=== PATIENT | female | born 1975 | race Caucasian/White ===

== ENCOUNTER 2022-04-30 22:33 | Emergency (ER) | payer SELFPAY ==
--- NOTE | ~2022-04-30 | XR_ITS ---
EXAMINATION: XR knee LT min 4V DATE: 04/30/2022 23:45 INDICATION: Left knee pain post injury TECHNIQUE: Anteroposterior, 2 oblique and crosstable lateral views of the left knee were obtained COMPARISON: None. FINDINGS: Alignment is normal. No fracture. Joint spaces appear relatively preserved on nonweightbearing imagi ng. Small marginal osteophytes along the proximal distal patella consistent with at least mild osteoa rthritis. Small enthesophyte at the patellar insertion of the quadriceps tendon. Small left knee join t effusion without layering lipohemarthrosis. Cluster of multiple small calcifications at the medial side of the popliteal fossa with location suggesting loose bodies within a Rodriguez's cyst. IMPRESSION: 1. Mild patellofemoral osteoarthritis and small left knee joint effusion. No acute osseous abnormalit y. Reviewed, dictated and finalized at location A. IMPRESSION: 1. Mild patellofemoral osteoarthritis and small left knee joint effusion. No ac page osseous abnormality.
--- NOTE | ~2022-04-30 | XR_ITS ---
EXAMINATION: XR elbow LT 2V DATE: 04/30/2022 23:45 INDICATION: Left elbow injury with pain TECHNIQUE: Anteroposterior, oblique and lateral views of the left elbow were obtained. COMPARISON: None. FINDINGS: There is posterior dislocation of the left elbow with approximately 1.5 cm proximal migration. There are couple tiny ossific densities projecting over the distal humeral condyles likely representing an impaction fracture resident from the tip of the coronoid process. Old fracture of the distal humeral diaphysis which has healed with approximately 10 degrees medial angulation. No other acute fractures identified. Soft tissues are unremarkable. IMPRESSION: 1. Left elbow posterior dislocation with tiny impaction fracture at the tip of the coronoid process. Reviewed, dictated and finalized at location A.
--- NOTE | ~2022-04-30 | XR_ITS ---
EXAMINATION: XR elbow LT 2V DATE: 05/01/2022 02:34 INDICATION: Postreduction left elbow dislocation TECHNIQUE: Anteroposterior, two oblique and lateral views of the left elbow were obtained. COMPARISON: 04/30/2022 FINDINGS: Successful reduction to normal alignment of the previously dislocated left elbow joint. Small ossific density projecting along the medial margin of the elbow joint line likely representing a small avuls ion fracture fragment which is proven is felt to originate from the coronoid process although given l ocation on the current study this could also represent a fracture of the footplate of the medial jonathan ateral ligament joint spaces are normal. Old healed distal left humeral diaphyseal fracture. Likely l eft breast implant. Soft tissues are otherwise unremarkable with no appreciable elbow joint effusion. Fiberglass splinting about the elbow. IMPRESSION: 1. Successful reduction to normal alignment of the previously dislocated left elbow joint. 2. Small fracture fragment at the medial side of the joint space which is of indeterminate origin, po tentially either avulsion of one of the medial collateral ligament footplates or impaction fracture o f the tip of the coronoid process. Reviewed, dictated and finalized at location A. IMPRESSION: 1. Successful reduction to normal alignment of the previously dislocated left e lbow joint. 2. Small fracture fragment at the medial side of the joint space which is of in determinate origin, potentially either avulsion of one of the medial collateral ligament footplates or impaction fracture of the tip of the coronoid process.
[2022-04-30 22:40] VITALS: BP 109/63; PULSE 84; RESP 17; TEMP 37.2; O2SAT 97
[2022-04-30 22:45] VITALS: BP 109/63; PULSE 84; RESP 17; TEMP 37.2; O2SAT 97
[2022-04-30] MEDS: ONDANSETRON INJ 4 MG/2 ML VIAL IV PUSH (23:10)
[2022-04-30] MEDS: MORPHINE SULFATE (*CRX) 4 MG/ML INJ IV PUSH (23:11)
--- NOTE | 2022-04-30 23:30 | ED.UPPEXIN ---
HPI - Extremity Injury (Upper) General Chief Complaint: Extremity Injury, Upper <Nat Sepulveda PA-C - Last Filed: 05/01/22 03:43> Stated Complaint: ELBOW DEFORMITY S/P FALL <Nat Sepulveda PA-C - Last Filed: 05/01/22 03:43> Time Seen by Provider: 04/30/22 22:40 <Nat Sepulveda PA-C - Last Filed: 05/01/22 03:43> Source: patient <DEEPAK Velasquez Last Filed: 05/01/22 03:43> Mode of arrival: EMS <DEEPAK Velasquez Last Filed: 05/01/22 03:43> Limitations: no limitations <Nat Sepulveda PA-C - Last Filed: 05/01/22 03:43> History of Present Illness HPI narrative: This is a 46-year-old female that presents emergency department for left elbow pain after a fall today. Reports she was standing on her right side table to try to kill a bug. She lost her balance and fell onto her left elbow. Reports decreased range of motion of the elbow due to pain. Also reports pain in her left knee worse with weightbearing. Denies hitting her head, loss of consciousness, or numbness. <Nat Sepulveda PA-C - Last Filed: 05/01/22 03:43> Related Data Allergies/Adverse Reactions: Allergies Allergy/AdvReac Type Severity Reaction Status Date / Time codeine Allergy Nausea and Verified 05/01/22 03:35 Vomiting <Nat Sepulveda PA-C - Last Filed: 05/01/22 03:43> Review of Systems Review of Systems: CONSTITUTIONAL: Denies fever MUSCULOSKELETAL: Reports joint pain, and myalgia. NEUROLOGIC: Denies numbness, or weakness. <Nat Sepulveda PA-C - Last Filed: 05/01/22 03:43> All systems reviewed & are unremarkable except as noted in HPI and below <Nat Sepulveda PA-C - Last Filed: 05/01/22 03:43> [facility] Past Medical History Medical History: Medical History (Updated 05/01/22 @ 03:37 by Nat Sepulveda PA-C) No active medical problems <Nat Sepulveda PA-C - Last Filed: 05/01/22 03:43> Social History Social History: Social History (Updated 04/30/22 @ 23:41 by Nat Sepulveda PA-C) Substance use: never <Nat Sepulveda PA-C - Last Filed: 05/01/22 03:43> Exam Narrative: GENERAL: Well-appearing, well-nourished, and in no acute distress. HEAD: Normocephalic, atraumatic. EYES: EOMI. CHEST: Clear to auscultation. No respiratory distress. No wheezes rales or rhonchi HEART: Regular rate and rhythm. No murmur heard. Normal peripheral pulses. EXTREMITIES: Normal range of motion, except decreased active ROM in the left elbow due to pain. No edema. Normal radial and DP pulses. Normal sensation SKIN: Warm, dry, no rash. NEURO: No focal deficits. Alert and oriented x3. PSYCH: Normal mood and affect <Nat Sepulveda PA-C - Last Filed: 05/01/22 03:43> Course PRIVATE WEALTH ADVISOR/PA Physician Supervision For this patient encounter, I reviewed the PRIVATE WEALTH ADVISOR or PA documentation, treatment plan, and medical decision making; and I had [id number] time with this patient. <Donnie Gomez MD - Last Filed: 05/01/22 04:01> Vital Signs Vital signs: Vital Signs Temperature 99.0 F 04/30/22 22:40 Pulse Rate 84 04/30/22 22:40 Respiratory Rate 17 04/30/22 22:40 Blood Pressure 109/63 04/30/22 22:40 Pulse Oximetry 97 04/30/22 22:40 Oxygen Delivery Room Air 04/30/22 22:40 Temperature 98.3 F 05/01/22 02:40 Pulse Rate 77 05/01/22 02:40 Respiratory Rate 20 05/01/22 02:40 Blood Pressure 109/64 05/01/22 02:40 Pulse Oximetry 95 05/01/22 02:40 Oxygen Delivery Room Air 05/01/22 02:40 Oxygen Flow Rate 2 05/01/22 02:35 <Nat Sepulveda PA-C - Last Filed: 05/01/22 03:43> Vital Signs Temperature 99.0 F 04/30/22 22:40 Pulse Rate 84 04/30/22 22:40 Respiratory Rate 17 04/30/22 22:40 Blood Pressure 109/63 04/30/22 22:40 Pulse Oximetry 97 04/30/22 22:40 Oxygen Delivery Room Air 04/30/22 22:40 Temperature 98.3 F 05/01/22 02:40 Pulse Rate 77 05/01/22 02:40 Respiratory Rate 20 05/01/22 02:40 Blood Pressure 1
[2022-05-01] VITALS (13 sets, daily range): BP systolic 107–150; BP diastolic 64–81; PULSE 75–86; RESP 14–39; TEMP 36.8–37.5; O2SAT 92–100
[2022-05-01] MEDS: PROPOFOL IV EMULSION 200 MG/20 ML VIAL 60 MG IV PUSH (02:06)
[2022-05-01] MEDS: KETOROLAC 15 MG/ML VIAL (*BKC) IV PUSH (02:30)
[2022-05-01] MEDS: Please add drug allergy info to patient profile. 1 EACH XX (03:01)
== END 2022-05-01 04:25 | disposition home or self-care (01) ==
PROVIDERS: Emergency Provider Emergency Medicine
DX: S53.105A Unspecified dislocation of left ulnohumeral joint, initial encounter (principal); M23.92 Unspecified internal derangement of left knee; W17.89XA Other fall from one level to another, initial encounter
CPT/HCPCS: 24600; 73070; 73564; 96365; 96375; 99285; A4565; J0131; J1885; J2270; J2405; J2704